=== PATIENT | female | born 1960 | race Caucasian/White ===

== ENCOUNTER → 2016-12-06 | Outpatient (CLI) | payer MEDICARE, OTHER ==
[2016-12-06 13:18] LABS: HEMOGLOBIN 12.3 gm/dl (12.3-15.3); RED BLOOD COUNT 4.27 M/UL (4.00-5.10); WHITE BLOOD COUNT 2.8 K/UL (4.5-11.0)
== END ==
LOC: LAB 12:34
PROVIDERS: Internal Medicine Nephrology
DX: Z94.0 Kidney transplant status (principal); D64.9 Anemia, unspecified; G25.81 Restless legs syndrome; I10 Essential (primary) hypertension; A49.02 Methicillin resistant Staphylococcus aureus infection, unspecified site; K21.9 Gastro-esophageal reflux disease without esophagitis; M10.9 Gout, unspecified; M32.9 Systemic lupus erythematosus, unspecified; I82.721 Chronic embolism and thrombosis of deep veins of right upper extremity; Z99.2 Dependence on renal dialysis; Z79.01 Long term (current) use of anticoagulants
CPT/HCPCS: 36415; 80069; 83735; 85027

== ENCOUNTER → 2017-03-06 | Outpatient (CLI) | payer MEDICARE, OTHER ==
[2017-03-06 12:45] LABS: HEMOGLOBIN 13.4 gm/dl (12.3-15.3); RED BLOOD COUNT 4.7 M/UL (4.00-5.10); WHITE BLOOD COUNT 3.5 K/UL (4.5-11.0)
== END ==
LOC: LAB 11:41
PROVIDERS: Internal Medicine Nephrology
DX: D64.9 Anemia, unspecified (principal); G25.81 Restless legs syndrome; I10 Essential (primary) hypertension; A49.02 Methicillin resistant Staphylococcus aureus infection, unspecified site; K21.9 Gastro-esophageal reflux disease without esophagitis; M10.9 Gout, unspecified; M32.9 Systemic lupus erythematosus, unspecified; I82.721 Chronic embolism and thrombosis of deep veins of right upper extremity; Z79.01 Long term (current) use of anticoagulants; Z94.0 Kidney transplant status; Z96.649 Presence of unspecified artificial hip joint
CPT/HCPCS: 36415; 80069; 83735; 85027

== ENCOUNTER 2020-12-03 15:47 | Emergency (ER) | payer BC, MEDICARE | END 2020-12-03 18:51 | disposition home or self-care (01) | LOC: ER1 15:47 | DX: S82.831A Other fracture of upper and lower end of right fibula, initial encounter for closed fracture (principal); W01.0XXA Fall on same level from slipping, tripping and stumbling without subsequent striking against object, initial encounter; Z23 Encounter for immunization; Z94.0 Kidney transplant status | CPT/HCPCS: 12002; 73590; 90471; 90715; 99283 ==

== ENCOUNTER → 2021-01-19 | Outpatient (CLI) | payer BC, MEDICARE | LOC: LAB 18:54 | DX: Z20.822 Contact with and (suspected) exposure to COVID-19 (principal) | CPT/HCPCS: U0002 ==

== ENCOUNTER → 2021-06-15 | Outpatient (CLI) | payer BC, MEDICARE | LOC: EXRD 14:25 | DX: I73.9 Peripheral vascular disease, unspecified (principal); M79.661 Pain in right lower leg; M79.89 Other specified soft tissue disorders; Z94.0 Kidney transplant status; Z79.899 Other long term (current) drug therapy; F11.20 Opioid dependence, uncomplicated; I77.1 Stricture of artery | CPT/HCPCS: 93926; 93971 ==

== ENCOUNTER → 2022-05-15 | Outpatient (CLI) | payer BC, MEDICARE | LOC: KOH-I 11:28 | DX: R06.02 Shortness of breath (principal) | CPT/HCPCS: 71046 ==